=== PATIENT | female | born 1985 | race Caucasian/White ===

== ENCOUNTER 2016-12-24 12:31 | Emergency (ER) | payer OTHER ==
[~2016-12-24] VITALS: Ht 172.7 cm; Wt 122.5 kg
[~2016-12-24 12:31] MED LIST: NORCO 5/325 MG1 TAB PO; TYLENOL ES500 MG PO
[2016-12-24 12:37] VITALS: BP 138/72
--- NOTE | 2016-12-24 12:40 | NUR ---
PATIENT TO ER BED 2.
[2016-12-24 13:30] VITALS: BP 138/72
--- NOTE | 2016-12-24 13:30 | NUR ---
PATIENT PRESENTS TO ED WITH PT PRESENTS TO ER FOR EVALUATION OF VAGINAL BLEEDING DURING . PT STATES SHE IS 6 WEEKS AND BEGAN BLEEDING LAST NOC AND NOW HAS ABDOMINAL CRAMPING.DENIES N/V/D; SKIN IS PINK/WARM/DRY; AAOX4 WITH EVEN AND STEADY GAIT; LUNGS CLEAR BL; HR EVEN AND REGULAR; PT DENIES ANY FEVER, CP, SOB, OR COUGH AT THIS TIME; PATIENT STATES PAIN OF 3/10 AT THIS TIME; VSS; PATIENT POSITIONED FOR COMFORT; HOB ELEVATED; BEDRAILS UP X2; BED DOWN. ER MD MADE AWARE OF PT STATUS.
--- NOTE | 2016-12-24 13:36 | NUR ---
Patient being evaluated by physician at bedside.
--- NOTE | 2016-12-24 16:00 | NUR ---
PT STATED THAT SHE MUST GO HOME, SHE LEFT W/O D/C INSTRUCTION
== END 2016-12-24 16:00 | disposition home or self-care (01) ==
LOC: MED 12:31
DX: O20.0 Threatened abortion (principal); O16.1 Unspecified maternal hypertension, first trimester; Z3A.01 Less than 8 weeks gestation of pregnancy

== ENCOUNTER 2017-05-11 09:52 | Emergency (ER) | payer OTHER ==
[~2017-05-11] VITALS: Ht 172.7 cm; Wt 130.7 kg
[~2017-05-11 09:52] MED LIST changes: +ACET-6134 PO; +HYDR-4446 PO; -NORCO 5/325 MG1 TAB PO; -TYLENOL ES500 MG PO
[2017-05-11 09:59] VITALS: BP 157/90
--- NOTE | 2017-05-11 10:03 | NUR ---
Patient ambulated to bed 4 at this time.
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
--- NOTE | 2017-05-11 10:38 | NUR ---
STEFANIE COLE AT BEDSIDE.
--- NOTE | 2017-05-11 11:15 | NUR ---
LAB BY BEDSIDE
--- NOTE | 2017-05-11 11:16 | NUR ---
Patient appears to be resting comfortably in bed. Vital Signs within normal limits. Respirations even and unlabored. All needs met at this time.
[2017-05-11 11:26] LABS: APPEARANCE,URINE TURBID (CLEAR); BILIRUBIN,URINE 1+ (NEGATIVE); BLOOD, URINE 3+ (NEGATIVE); COLOR,URINE BROWN (YELLOW); LEUKOCYTE ESTERASE ,URINE NEGATIVE (NEGATIVE); NITRITE, URINE NEGATIVE (NEGATIVE); PROTEIN,URINE 2+ (NEGATIVE); UGLUCOSE NEGATIVE (NEGATIVE); UROBILINOGEN,URINE 0.2 EU/dL (0.2 - 1)
[2017-05-11 11:37] LABS: BACTERIA,URINE 1+ /HPF (None Seen); ICTOTEST NEGATIVE (NEGATIVE); RBC,URINE 50-80 /HPF (0-5); WBC,URINE 0-5 (RARE) /HPF (0-5)
[2017-05-11 11:38] LABS: MUCUS,URINE 2+ /LPF (None Seen)
--- NOTE | 2017-05-11 12:31 | NUR ---
ER CODY BY BEDSIDE UPDATING PT ON STATUS; PT VERBALIZES UNDERSTANDING; ALL NEEDS MET AT THIS TIME
[2017-05-11 13:01] VITALS: BP 124/77
--- NOTE | 2017-05-11 13:01 | NUR ---
Patient discharged with v/s stable. Written and verbal after care instructions given and explained. Patient verbalized understanding. Ambulatory with steady gait. All questions addressed prior to discharge. Advised to follow up with PMD.
== END 2017-05-11 13:01 | disposition home or self-care (01) ==
LOC: MED 09:52
DX: Z32.01 Encounter for pregnancy test, result positive (principal); O20.9 Hemorrhage in early pregnancy, unspecified; Z3A.00 Weeks of gestation of pregnancy not specified; I10 Essential (primary) hypertension
CPT/HCPCS: 36415; 81001; 81025; 84702; 99284

== ENCOUNTER 2017-06-06 19:40 | Emergency (ER) | payer SELFPAY ==
--- NOTE | 2017-06-06 19:54 | NUR ---
PATIENT LEFT WITHOUT BEING SEEN BY DR. BELL. NO FURTHER CARE PROVIDED FOR PATIENT.
== END 2017-06-06 19:54 | disposition left against medical advice (07) ==
LOC: MED 19:40
DX: Z53.21 Procedure and treatment not carried out due to patient leaving prior to being seen by health care provider (principal)

== ENCOUNTER 2017-06-14 22:56 | Emergency (ER) | payer OTHER ==
[~2017-06-14] VITALS: Ht 172.7 cm; Wt 134.7 kg
[2017-06-14 23:04] VITALS: BP 151/96
--- NOTE | 2017-06-14 23:09 | NUR ---
TO ER BED 7
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
[2017-06-14 23:40] LABS: BASOPHILS # (AUTO) 0.3 K/uL (0.00-0.22); BASOPHILS % (AUTO) 3.5 % (0.0-2.0); EOSINOPHILS # (AUTO) 0.2 K/uL (0-0.4); EOSINOPHILS % (AUTO) 2.2 % (0.0-4.0); HEMOGLOBIN 11.8 g/dL (12.0-16.0); LYMPHOCYTES # (AUTO) 3.2 K/uL (2.5-16.5); LYMPHOCYTES % (AUTO) 35.1 % (20.5-51.1); MEAN CORPUSCULAR HEMOGLOBIN 26 pg (27-31); MEAN CORPUSCULAR HGB CONC 33 g/dL (33-37); MEAN CORPUSCULAR VOLUME 79 fL (80-94); MONOCYTES # (AUTO) 0.6 K/uL (0.8-1.0); MONOCYTES % (AUTO) 7.2 % (1.7-9.3); NEUTROPHILS # (AUTO) 4.7 K/uL (1.8-7.7); PLATELET COUNT (AUTO) 303 K/uL (140-450); RED BLOOD CELL COUNT(AUTO) 4.57 MIL/uL (4.20-5.40); RED CELL DISTRIBUTION WIDTH 12.9 % (11.6-13.7)
[2017-06-14 23:51] LABS: ANION GAP 10.8 (8-16); CARBON DIOXIDE 26.8 mmol/L (21-32); CREATININE 0.9 mg/dL (0.6-1.3); POTASSIUM 3.6 mmol/L (3.5-5.1)
[2017-06-14 23:57] LABS: TOTAL BILIRUBIN 0.3 mg/dL (0.0-1.0)
[2017-06-15 00:12] LABS: PROTHROMBIN TIME 9.4 secs (10.8-13.4)
--- NOTE | 2017-06-15 01:40 | NUR ---
ALL RESULTS BACK AND NOTED BY ERMD AND FOR D/C.
[2017-06-15 02:10] VITALS: BP 150/90
== END 2017-06-15 02:10 | disposition home or self-care (01) ==
LOC: MED 22:56
DX: O16.1 Unspecified maternal hypertension, first trimester (principal); R07.9 Chest pain, unspecified; Z3A.01 Less than 8 weeks gestation of pregnancy
CPT/HCPCS: 36415; 80053; 84484; 84702; 85025; 85610; 85730; 93005; 99285

== ENCOUNTER 2017-08-03 17:52 | Emergency (ER) | payer OTHER ==
[~2017-08-03] VITALS: Ht 167.6 cm; Wt 130.2 kg
[~2017-08-03 17:52] MED LIST changes: +ACET-8386 PO; -HYDR-4446 PO
[2017-08-03 18:25] VITALS: BP 146/81
--- NOTE | 2017-08-03 18:45 | NUR ---
PT TO BED 6 AT THIS TIME.
--- NOTE | 2017-08-03 19:10 | NUR ---
REPORT RECEIVED FROM VERÓNICA JACOBO
--- NOTE | 2017-08-03 19:13 | NUR ---
PT PRESENTS TO ER W/C/O NAUSEA WITH ABDOMINAL CRAMPING SINCE LAST NOC. HX HYPOTHYROIDISM. DENIES V/D; SKIN IS PINK/WARM/DRY; AAOX4 WITH EVEN AND STEADY GAIT; LUNGS CLEAR BL; HR EVEN AND REGULAR; PT DENIES ANY FEVER, CP, SOB, OR COUGH AT THIS TIME; PATIENT STATES PAIN OF 7/10 AT THIS TIME; VSS; PATIENT POSITIONED FOR COMFORT; HOB ELEVATED; BEDRAILS UP X2; BED DOWN. ER MD MADE AWARE OF PT STATUS.
--- NOTE | 2017-08-03 19:21 | NUR ---
REPORT GIVEN TO VERÓNICA LANTIGUA
--- NOTE | 2017-08-03 19:23 | NUR ---
Patient being evaluated by DR. PARADA at bedside.
[2017-08-03 20:05] LABS: BASOPHILS # (AUTO) 0.2 K/uL (0.00-0.22); EOSINOPHILS # (AUTO) 0.1 K/uL (0-0.4); HEMOGLOBIN 12.9 g/dL (12.0-16.0); LYMPHOCYTES # (AUTO) 2.9 K/uL (2.5-16.5); MEAN CORPUSCULAR HEMOGLOBIN 25 pg (27-31); MEAN CORPUSCULAR HGB CONC 32 g/dL (33-37); MEAN CORPUSCULAR VOLUME 78 fL (80-94); MONOCYTES # (AUTO) 0.6 K/uL (0.8-1.0); NEUTROPHILS # (AUTO) 3.6 K/uL (1.8-7.7); PLATELET COUNT (AUTO) 299 K/uL (140-450); RED BLOOD CELL COUNT(AUTO) 5.11 MIL/uL (4.20-5.40); RED CELL DISTRIBUTION WIDTH 12.8 % (11.6-13.7); WHITE BLOOD COUNT (AUTO) 7.4 K/uL (4.8-10.8)
[2017-08-03 20:15] LABS: APPEARANCE,URINE CLEAR (CLEAR); BILIRUBIN,URINE NEGATIVE (NEGATIVE); BLOOD, URINE NEGATIVE (NEGATIVE); COLOR,URINE YELLOW (YELLOW); LEUKOCYTE ESTERASE ,URINE NEGATIVE (NEGATIVE); NITRITE, URINE NEGATIVE (NEGATIVE); UGLUCOSE NEGATIVE (NEGATIVE)
[2017-08-03 20:17] LABS: CARBON DIOXIDE 28.7 mmol/L (21-32); CREATININE 0.9 mg/dL (0.6-1.3); POTASSIUM 3.7 mmol/L (3.5-5.1)
[2017-08-03 20:33] LABS: FREE T4 (FREE THYROXINE) 1.35 ng/dL (0.76-1.46); THYROID STIMULATING HORMONE < 0.01 uIU/mL (0.34-3.74)
[2017-08-03] MEDS ORDERED: ONDANSETRON 4 MG ODT PO ONE (20:45)
[2017-08-03 21:01] VITALS: BP 141/83
== END 2017-08-03 21:01 | disposition home or self-care (01) ==
LOC: MED 17:52
DX: O26.891 Other specified pregnancy related conditions, first trimester (principal); R11.0 Nausea; E03.9 Hypothyroidism, unspecified; I10 Essential (primary) hypertension; Z79.899 Other long term (current) drug therapy
CPT/HCPCS: 36415; 80048; 81003; 81025; 84439; 84443; 84702; 85025; 86900; 86901; 99284; S0119

== ENCOUNTER 2017-08-14 19:20 | Emergency (ER) | payer OTHER ==
[~2017-08-14] VITALS: Ht 172.7 cm; Wt 127.0 kg
[2017-08-14 19:26] VITALS: BP 153/92
--- NOTE | 2017-08-14 19:42 | NUR ---
PT TAKEN TO BED 3
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
--- NOTE | 2017-08-14 20:16 | NUR ---
Dr. Leung evaluating patient at bedside.
--- NOTE | 2017-08-14 20:40 | NUR ---
PT TAKEN TO CT
[2017-08-14 21:35] LABS: FREE T4 (FREE THYROXINE) 1.39 ng/dL (0.76-1.46); THYROID STIMULATING HORMONE < 0.01 uIU/mL (0.34-3.74)
[2017-08-14 22:40] VITALS: BP 118/72
--- NOTE | 2017-08-14 22:41 | NUR ---
Patient discharged with v/s stable. Written and verbal after care instructions given and explained. Patient verbalized understanding. Ambulatory with steady gait. All questions addressed prior to discharge. Advised to follow up with PMD. rx naprosyn 500mg.
== END 2017-08-14 22:41 | disposition home or self-care (01) ==
LOC: MED 19:20
DX: E04.1 Nontoxic single thyroid nodule (principal); I10 Essential (primary) hypertension
CPT/HCPCS: 36415; 70490; 81025; 84439; 84443; 99285